=== PATIENT | female | born 1980 | race Hispanic/Latino ===

== ENCOUNTER 2025-06-16 13:23 | Inpatient (IN) | payer OTHER ==
[2025-06-16 14:20] LABS: Hematocrit 17.8 % (36.0-47.0); Hemoglobin 6.1 g/dL (12.0-16.0); Mean Corpuscular Hemoglobin 30.0 pg (27.0-31.0); Mean Corpuscular Volume 87.7 fL (78.0-98.0); Platelet Count 40 10x3/uL (130-400); Red Blood Cell (RBC) Count 2.03 mill/uL (4.20-5.40); White Blood Cell (WBC) Count 0.50 10x3/uL (4.8-10.8)
[2025-06-16 14:22] LABS: ALT (SGPT) 17 U/L (Less than 34); AST (SGOT) 15 U/L (11-34); Albumin 4.1 g/dL (3.1-4.5); Alkaline Phosphatase 87 U/L (40-110); Anion Gap 10 mmol/L (10-20); BUN (Urea Nitrogen) 18 mg/dL (7.0-18.7); Bilirubin, Total 0.5 mg/dL (0.3-1.2); Calc. Creatinine Clearance 0 mL/min (70-130); Calcium 8.7 mg/dL (7.8-10.44); Carbon Dioxide 24 mmol/L (22-29); Chloride 110 mmol/L (98-107); Globulin 2.1 g/dL (2.4-3.5); Glucose 125 mg/dL (70-105); Potassium 4.4 mmol/L (3.5-5.1); Sodium 140 mmol/L (136-145)
[2025-06-16 14:39] LABS: Platelet Adequacy Comment Platelets Decreased; Polychromasia SLIGHT = 2-3 cells HPF (0-2); Smudge Cells 6.0 %; Stomatocytes SLIGHT = 2-5 cells HPF (0-1)
[2025-06-16] MEDS ORDERED: Ondansetron PF 4 MG/2 ML Vial IVP PRN (18:30)
[2025-06-16 18:38] VITALS: BMI 28.8
[2025-06-16] MEDS: Acetaminophen 500 MG TAB PO PRN (21:32)
[2025-06-17] MEDS ORDERED: diphenhydrAMINE 25 MG CAP PO SCH (04:45)
[2025-06-17 04:50] LABS: #Basophils Less than 0.03 10x3/uL (0.0-0.2); #Eosinophils Less than 0.03 10x3/uL (0.0-0.7); #Monocytes 0.05 10x3/uL (0.11-0.59); #Neutrophils 0.18 10x3/uL (1.40-6.50); %Basophils 0.0 % (0.0-1.0); %Eosinophils 0.0 % (0.0-10.0); %Lymphocytes 64.1 % (21.0-51.0); %Monocytes 7.8 % (0.0-10.0); %Neutrophils 28.1 % (42.0-75.0); Hematocrit 21.7 % (36.0-47.0); Hemoglobin 7.4 g/dL (12.0-16.0); Mean Corpuscular Hemoglobin 30.1 pg (27.0-31.0); Mean Corpuscular Volume 88.2 fL (78.0-98.0); Platelet Count 32 10x3/uL (130-400); Red Blood Cell (RBC) Count 2.46 mill/uL (4.20-5.40); White Blood Cell (WBC) Count 0.64 10x3/uL (4.8-10.8)
[2025-06-17 05:00] LABS: Anion Gap 10 mmol/L (10-20); BUN (Urea Nitrogen) 15 mg/dL (7.0-18.7); Calc. Creatinine Clearance 146 mL/min (70-130); Calcium 8.2 mg/dL (7.8-10.44); Carbon Dioxide 23 mmol/L (22-29); Chloride 110 mmol/L (98-107); Glucose 111 mg/dL (70-105); Potassium 4.3 mmol/L (3.5-5.1); Sodium 139 mmol/L (136-145)
[2025-06-17 06:12] LABS: Nucleated RBC (Manual Ct) 1 % (0); Platelet Adequacy Comment Platelets Decreased; Polychromasia SLIGHT = 2-3 cells HPF (0-2)
[2025-06-17] MEDS ORDERED: Non-Formulary Item 1 EACH (Voriconazole [Voriconazole] 200 MG Tablet) PO SCH (09:00)
[2025-06-17] MEDS: valACYclovir 500 MG TAB PO SCH (09:08)
[2025-06-17] MEDS: Pantoprazole 40 MG DR.TAB PO SCH (09:09)
[2025-06-17] MEDS: PNEUMOC 20-VAL CONJ-DIP CRM/PF 0.5 ML SYRINGE IM ONE (09:54)
[2025-06-17 14:18] VITALS: BP 119/79; TEMP 98.7
== END 2025-06-17 14:30 | disposition home or self-care (01) | DRG 809 ==
LOC: ERS 13:23 → MSONC 17:08
PROVIDERS: ADMIT Family Medicine; ATTEND Internal Medicine
PROC: 30233N1 Transfusion of Nonautologous Red Blood Cells into Peripheral Vein, Percutaneous Approach (ICD-10-PCS; principal; 2025-06-16)
DX: D61.810 Antineoplastic chemotherapy induced pancytopenia (principal); C92.10 Chronic myeloid leukemia, BCR/ABL-positive, not having achieved remission; T45.1X5A Adverse effect of antineoplastic and immunosuppressive drugs, initial encounter; X58.XXXA Exposure to other specified factors, initial encounter; Z98.891 History of uterine scar from previous surgery; Z79.899 Other long term (current) drug therapy; Z98.890 Other specified postprocedural states
CPT/HCPCS: 36415; 36430; 80048; 80053; 85025; 86850; 86900; 86901; 93005; 99285; J2543; P9016

== ENCOUNTER 2025-07-27 22:40 | Inpatient (IN) | payer OTHER ==
[2025-07-27 23:29] LABS: Hematocrit 14.7 % (36.0-47.0); Hemoglobin 4.8 g/dL (12.0-16.0); Mean Corpuscular Hemoglobin 26.8 pg (27.0-31.0); Mean Corpuscular Volume 82.1 fL (78.0-98.0); Platelet Count 26 10x3/uL (130-400); Red Blood Cell (RBC) Count 1.79 mill/uL (4.20-5.40); White Blood Cell (WBC) Count 0.30 10x3/uL (4.8-10.8)
[2025-07-27 23:38] LABS: CAUTI Indications for Culture Immunosuppressed; Glucose, Urine (Dipstick) Normal (Negative); Leukocyte 25 Leu/uL (Negative); Protein, Urine (Dipstick) 10 mg/dL (Neg-Trace); RBC/HPF 0-3 HPF (0-3); Specific Gravity, Urine 1.019 (1.002-1.036); WBC/HPF 0-3 HPF (0-3)
[2025-07-27 23:39] LABS: ALT (SGPT) 82 U/L (Less than 34); AST (SGOT) 34 U/L (11-34); Albumin 3.8 g/dL (3.1-4.5); Alkaline Phosphatase 192 U/L (40-110); Anion Gap 15 mmol/L (10-20); BUN (Urea Nitrogen) 12 mg/dL (7.0-18.7); Bilirubin, Total 0.6 mg/dL (0.3-1.2); Calc. Creatinine Clearance 0 mL/min (70-130); Calcium 8.7 mg/dL (7.8-10.44); Carbon Dioxide 23 mmol/L (22-29); Chloride 105 mmol/L (98-107); Globulin 2.3 g/dL (2.4-3.5); Glucose 106 mg/dL (70-105); Potassium 4.5 mmol/L (3.5-5.1); Sodium 138 mmol/L (136-145)
[2025-07-27 23:40] LABS: Bacteria/HPF Rare-Few HPF (None Seen)
[2025-07-27 23:41] LABS: Urine Culture Reflex Yes Yes
[2025-07-27] MEDS ORDERED: Cefepime 2 GM VIAL ONE (23:55)
[2025-07-28 00:08] LABS: Platelet Adequacy Comment Significant Decrease; RBC Morphology Within Normal Limits; Smudge Cells 5.1 %
[2025-07-28] MEDS ORDERED: Acetaminophen 500 MG TAB ONE (00:12)
[2025-07-28] MEDS ORDERED: Senokot S 8.6-50 MG TAB PO PRN (01:49)
[2025-07-28] MEDS ORDERED: Ondansetron PF 4 MG/2 ML Vial IVP PRN (01:49)
[2025-07-28 02:02] LABS: Actual Bicarbonate (HCO3v) 22.7 mEq/L (22-28); Base Excess 1.1 mEq/L (-2.0 to +3.0); Calcium, Ionized (venous) 0.89 mmol/L (1.16-1.32); Chloride (VBG) 104 mmol/L (98-106); Hematocrit-VBG 16 % (36.0-47.0); Potassium (VBG) 4.43 mmol/L (3.70-5.30); Sodium 135 mmol/L (133-146)
[2025-07-28 02:11] LABS: Hemoglobin (Hb) 5.3 g/dL (11.7-15.5)
[2025-07-28 03:12] VITALS: BMI 27.7
[2025-07-28] MEDS: Vancomycin 1.5 GM / NS 500ML VIAL-2-BAG IVPB SCH (03:43)
[2025-07-28 04:21] LABS: Influenza A by NAA Not Detected (NotDetected); Influenza B by NAA Not Detected (NotDetected); RSV by NAA Not Detected (NotDetected); SARS-CoV-2 NAA Rapid Test Not Detected (NotDetected)
[2025-07-28] MEDS: Albumin 25% 25 GM (100 mL) BOT IVPB SCH (05:08)
[2025-07-28 06:06] LABS: Hematocrit 16.9 % (36.0-47.0); Hemoglobin 5.7 g/dL (12.0-16.0); Mean Corpuscular Hemoglobin 28.1 pg (27.0-31.0); Mean Corpuscular Volume 83.3 fL (78.0-98.0); Platelet Count 21 10x3/uL (130-400); Red Blood Cell (RBC) Count 2.03 mill/uL (4.20-5.40); White Blood Cell (WBC) Count 0.28 10x3/uL (4.8-10.8)
[2025-07-28 06:22] LABS: ALT (SGPT) 64 U/L (Less than 34); AST (SGOT) 25 U/L (11-34); Albumin 3.5 g/dL (3.1-4.5); Alkaline Phosphatase 160 U/L (40-110); Anion Gap 13 mmol/L (10-20); BUN (Urea Nitrogen) 12 mg/dL (7.0-18.7); Bilirubin, Total 0.9 mg/dL (0.3-1.2); Calc. Creatinine Clearance 137 mL/min (70-130); Calcium 7.9 mg/dL (7.8-10.44); Carbon Dioxide 20 mmol/L (22-29); Chloride 113 mmol/L (98-107); Globulin 1.8 g/dL (2.4-3.5); Glucose 154 mg/dL (70-105); Potassium 4.8 mmol/L (3.5-5.1); Sodium 141 mmol/L (136-145)
[2025-07-28 06:25] LABS: Platelet Adequacy Comment Significant Decrease; RBC Morphology Within Normal Limits; Smudge Cells 7.9 %
[2025-07-28] MEDS: valACYclovir 500 MG TAB PO SCH (08:59)
[2025-07-28] MEDS: Vancomycin 1.25 GM / NS 250 ML VIAL-2-BAG IVPB SCH (17:12)
[2025-07-28 18:20] LABS: #Basophils Less than 0.03 10x3/uL (0.0-0.2); #Eosinophils Less than 0.03 10x3/uL (0.0-0.7); #Monocytes Less than 0.03 10x3/uL (0.11-0.59); #Neutrophils 0.05 10x3/uL (1.40-6.50); %Basophils 0.0 % (0.0-1.0); %Eosinophils 0.0 % (0.0-10.0); %Lymphocytes 72.0 % (21.0-51.0); %Monocytes 8.0 % (0.0-10.0); %Neutrophils 20.0 % (42.0-75.0); Hematocrit 24.4 % (36.0-47.0); Hemoglobin 8.3 g/dL (12.0-16.0); Mean Corpuscular Hemoglobin 28.1 pg (27.0-31.0); Mean Corpuscular Volume 82.7 fL (78.0-98.0); Platelet Count 25 10x3/uL (130-400); Red Blood Cell (RBC) Count 2.95 mill/uL (4.20-5.40); White Blood Cell (WBC) Count 0.25 10x3/uL (4.8-10.8)
[2025-07-28] MEDS: Mupirocin 1 GM TUBE TP SCH (20:00)
[2025-07-29 04:38] LABS: Vancomycin, Random 14.5 ug/mL (See Comment)
[2025-07-29 09:59] LABS: Hematocrit 22.4 % (36.0-47.0); Hemoglobin 7.5 g/dL (12.0-16.0); Mean Corpuscular Hemoglobin 27.6 pg (27.0-31.0); Mean Corpuscular Volume 82.4 fL (78.0-98.0); Platelet Count 20 10x3/uL (130-400); Red Blood Cell (RBC) Count 2.72 mill/uL (4.20-5.40); White Blood Cell (WBC) Count 0.28 10x3/uL (4.8-10.8)
[2025-07-29 10:07] LABS: Anion Gap 11 mmol/L (10-20); BUN (Urea Nitrogen) 13 mg/dL (7.0-18.7); Calc. Creatinine Clearance 154 mL/min (70-130); Calcium 8.5 mg/dL (7.8-10.44); Carbon Dioxide 22 mmol/L (22-29); Chloride 112 mmol/L (98-107); Glucose 114 mg/dL (70-105); Potassium 4.2 mmol/L (3.5-5.1); Sodium 141 mmol/L (136-145)
[2025-07-29 10:42] LABS: Ovalocytes SLIGHT = 2-5 cells HPF (0-1); Platelet Adequacy Comment Significant Decrease; Smudge Cells 3.7 %
[2025-07-29] MEDS: Pantoprazole 40 MG DR.TAB PO SCH (12:23)
[2025-07-29] MEDS: Vancomycin 1 GM in Premix 1 BAG IVPB SCH (18:04)
[2025-07-29] MEDS: Calcium Carbonate 500 MG ChewTAB PO PRN (21:06)
[2025-07-30 05:34] LABS: Hematocrit 22.3 % (36.0-47.0); Hemoglobin 7.5 g/dL (12.0-16.0); Mean Corpuscular Hemoglobin 27.8 pg (27.0-31.0); Mean Corpuscular Volume 82.6 fL (78.0-98.0); Platelet Count 21 10x3/uL (130-400); Red Blood Cell (RBC) Count 2.70 mill/uL (4.20-5.40); White Blood Cell (WBC) Count 0.32 10x3/uL (4.8-10.8)
[2025-07-30 05:40] LABS: Vancomycin, Random 11.2 ug/mL (See Comment)
[2025-07-30 06:03] LABS: Platelet Adequacy Comment Platelets Decreased
[2025-07-30] MEDS: Pantoprazole 40 MG DR.TAB PO SCH (09:24)
[2025-07-30] MEDS: Acetaminophen 325 MG TAB PO PRN (09:38)
[2025-07-30 18:06] VITALS: BP 131/88; TEMP 98.7
[2025-07-31] MEDS ORDERED: FLU (Fluarix Triv) 25-26 (6MOS UP)/PF 45 MCG/0.5 ML Syringe IM ONE (09:00)
== END 2025-07-30 18:00 | disposition home or self-care (01) | DRG 809 ==
LOC: ERS 22:40 → MSONC 07-28 01:52
PROVIDERS: ADMIT Internal Medicine; ATTEND Hospitalist
PROC: 30233N1 Transfusion of Nonautologous Red Blood Cells into Peripheral Vein, Percutaneous Approach (ICD-10-PCS; principal; 2025-07-28)
DX: D61.818 Other pancytopenia (principal); C92.10 Chronic myeloid leukemia, BCR/ABL-positive, not having achieved remission; D70.9 Neutropenia, unspecified; D63.0 Anemia in neoplastic disease; Z79.899 Other long term (current) drug therapy
CPT/HCPCS: 36415; 36430; 71045; 80048; 80053; 80202; 81001; 82805; 83605; 84145; 85025; 86850; 86870; 86900; 86901; 86905; 86922; 87040; 87081; 87086; 87637; 93005; 94760; 96374; 96375; J0692; J2919; J3373; J7030; J7050; J7120; P9016; P9047